=== PATIENT | male | born 1960 ===

== ENCOUNTER 2021-02-08 08:32 | Day surgery (SDC) | payer BC ==
[~2021-02-08] VITALS: Ht 160 cm; Wt 60.5 kg
[2021-02-08] VITALS (10 sets, daily range): BP systolic 105–155; BP diastolic 57–88
[2021-02-08] MEDS ORDERED: HYDR-3973 PO (09:29)
[2021-02-08] MEDS ORDERED: VALA100031 PO (09:29)
[2021-02-08] MEDS: albumin 25% 100mL bottle x 1 IV PRN ×2 (10:33→11:23)
== END 2021-02-08 12:25 | disposition home or self-care (01) ==
LOC: SSTAY O 08:32
PROVIDERS: ATTEND Radiology Diagnostic Radiology
DX: R18.8 Other ascites (principal); R14.0 Abdominal distension (gaseous); Z85.72 Personal history of non-Hodgkin lymphomas; Z98.890 Other specified postprocedural states; Z79.899 Other long term (current) drug therapy
CPT/HCPCS: 49083; P9047

== ENCOUNTER 2021-03-06 06:39 | Day surgery (SDC) | payer BC ==
[~2021-03-06] VITALS: Ht 160 cm; Wt 60.1 kg
[2021-03-06] VITALS (8 sets, daily range): BP systolic 108–124; BP diastolic 59–78
[~2021-03-06 06:39] MED LIST: HYDR-3973 PO; VALA100031 PO
[2021-03-06] MEDS ORDERED: heparin sodium, porcine/PF 100unit/ml 5ML syringe ONE (08:33)
[2021-03-06] MEDS ORDERED: fentaNYL/PF 50MCG/1 ML 2ML syringe ONE (08:34)
[2021-03-06] MEDS ORDERED: LIDOcaine 1%/PF 5ML 10 MG/ML VIAL ONE (08:34)
[2021-03-06] MEDS ORDERED: midazolam 1 mg/ML 2ml injection ONE (08:34)
[2021-03-06] MEDS: albumin 25% 100mL bottle x 1 IV PRN ×3 (08:35→11:02)
[2021-03-06] MEDS ORDERED: ceFAZolin/D5W- 1GM premix 50 ML IV ONE (09:10)
== END 2021-03-06 12:45 | disposition home or self-care (01) ==
LOC: SSTAY O 06:39
PROVIDERS: ATTEND Radiology Vascular & Interventional Radiology
DX: C82.13 Follicular lymphoma grade II, intra-abdominal lymph nodes (principal); R18.8 Other ascites; Z98.890 Other specified postprocedural states; Z79.899 Other long term (current) drug therapy
CPT/HCPCS: 36561; 49083; 76937; 77001; 99152; 99153; C1769; C1788; C1894; J1642; J2250; J3010; P9047